=== PATIENT | female | born 1995 | race Caucasian/White ===

== ENCOUNTER 2017-02-18 20:32 | Emergency (ER) | payer OTHER ==
[2017-02-18 20:39] VITALS: RESP 18
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
[2017-02-18] MEDS ORDERED: HYDROCOD/APAP 5/325 PREPACK#6 BTL TAKEHOME ONE (21:26)
[2017-02-18 21:58] VITALS: BP 108/59; PULSE 82; TEMP 98.6; O2SAT 97
== END 2017-02-18 21:45 | disposition home or self-care (01) ==
PROC: 2W2MX4Z Dressing of Left Lower Extremity using Bandage (ICD-10-PCS; principal; 2017-02-18)
DX: T52.91XA Toxic effect of unspecified organic solvent, accidental (unintentional), initial encounter (principal); T25.61 Corrosion of second degree of ankle; T31.0 Burns involving less than 10% of body surface; X58.XXXA Exposure to other specified factors, initial encounter